=== PATIENT | female | born 1995 | race Caucasian/White ===

== ENCOUNTER 2016-11-18 17:39 | Emergency (ER) | payer BC ==
[~2016-11-18] VITALS: Ht 167.6 cm; Wt 82.0 kg
[2016-11-18 17:47] VITALS: BP 129/83; PULSE 97; TEMP 36.6; O2SAT 97; Ht 167.6 cm; Wt 82.0 kg
[2016-11-18] MEDS ORDERED: BCPILLS PO (17:49)
--- NOTE | 2016-11-18 18:14 | DIAGNOSTIC IMAGING REPORT ---
LEFT ANKLE MIN 3 VIEWS ROUTINE CLINICAL HISTORY: fall trauma COMPARISON: None. DISCUSSION: The bones and joint spaces appear intact. There is no evidence of fracture, dislocation or bony disease. Mild lateral soft tissue edema IMPRESSION: Negative study. Mild lateral soft tissue edema The above report was generated using voice recognition software. It may contain grammatical, syntax or spelling errors. Electronically signed by: Benito Jimenez M.D. 11/18/2016 6:13 PM Dictated Date/Time: 11/18/2016 6:12 PM
--- NOTE | 2016-11-19 21:08 | EMERGENCY ROOM VISIT NOTE ---
ED Visit Note First contact with patient: 18:12 Chief Complaint: I hurt my left ankle when I slipped down a couple steps. History of Present Illness: Ms. Mondragon is a 21-year-old white female who ambulates into the ED complaining of left lateral ankle pain. Patient reports she was at the local [employer] football game. She was drinking alcohol. When she was leaving the stadium she reports she tripped over someone's sweatshirt and fell down 3-4 stairs. When she fell down she injured her left ankle. She is unsure the exact mechanism of injury but believes it was an inversion injury. Since her fall which occurred less than an hour ago she reports she is having severe lateral ankle pain. She also reports during the fall she felt or heard 2 popping sensations. Currently she describes her pain as a constant sharp and throbbing pain. She rates her discomfort 10/10. Her pain is nonradiating. Her pain worsens with palpation of the ligamentous structures around the lateral malleolus, inversion, plantar flexion, weightbearing and ambulation. She has not identified any alleviating factors related to the pain. She has not taken any medications for pain prior to arrival at the hospital. She denies any associated symptoms including hip pain, knee pain, lower leg pain, foot pain, leg weakness/numbness/tingling. Additionally she denies any previous significant injuries or surgeries to the left ankle or foot. Review of Systems: As noted above in history of present illness. Past Medical History: Patient denies. Current Medications: control. Allergies to Medications: Patient denies. Social History: Patient feels safe in her home environment; she admits to alcohol use and denies tobacco use. Physical Examination: Vital Signs: Date Time Temp Pulse Resp B/P (MAP) Pulse Ox O2 Delivery O2 Flow Rate FiO2 11/18/16 17:47 36.6 97 18 129/83 97 Room Air GENERAL: 21-year-old female in mild to moderate distress due to pain, nontoxic- appearing, afebrile and hemodynamically stable. NEUROLOGICAL: Awake, alert and oriented to person, place and time. Answering questions appropriately and following commands. SKIN: Warm, dry and pink. No soft tissue trauma noted. LEFT LOWER EXTREMITY: No gross bony deformity. No shortening or malrotation. No tenderness in the hip, thigh, knee, proximal lower leg, foot. Moderate tenderness over the lateral ankle with mild swelling but no bony deformity, bony crepitus or ecchymosis. She did not want me to do ligamentous testing because of her pain. She did have restricted range of motion in plantar flexion and dorsiflexion due to pain. With her ankle stabilize she does have full range of motion of the knee and all the toes. Throughout the foot the skin was warm and pink and capillary refill is brisk. She is able to distinguish light sensations through all dermatomes. ED Course: Patient is assessed as noted above. Patient's medication list was reviewed. Patient was offered pain medication and refused; she did except ice for pain and comfort. Left Ankle X-Rays: Were read by myself and the radiologist showing no acute fractures or dislocations and mild lateral ankle swelling. Patient was placed in a gel splint and on nonweightbearing crutches. Patient was educated about today's findings and instructed on her treatment plan ; she verbalizes understanding and agreement with this plan. Clinical Impression: Left ankle sprain. Decision-Making: Initially my differential diagnosis I considered sprain, ankle fracture, ankle dislocation and other causes. Disposition: Patient discharged home in stable condition accompanied by male friend; prior to departure she was reassessed and subjectively reported she was pain-free. Plan: Comfort measures including rest, ice, elevation, alternating ibuprofen and acetaminophen and splint and crutch use as were discussed with the patient. Patient is encouraged follow-up with orthopedics if no better in 7-10 days. Patient was encouraged return ED for worsening/uncontrolled pain, uncontrolled swelling, foot weakness/numbness/tingling or any new/concerning symptoms.
== END 2016-11-18 19:00 | disposition home or self-care (01) ==
LOC: C.EDD 17:42
DX: S93.402A Sprain of unspecified ligament of left ankle, initial encounter (principal); W19.XXXA Unspecified fall, initial encounter